=== PATIENT | female | born 1945 | race Caucasian/White ===

== ENCOUNTER → 2023-06-11 14:00 | Outpatient (REF) | payer MEDICARE, BC, SELFPAY | LOC: HWEVLT 14:00 | PROVIDERS: ATTENDING PHYSICIAN Radiology Diagnostic Radiology | DX: I83.892 Varicose veins of left lower extremity with other complications (principal) | CPT/HCPCS: 93971 ==

== ENCOUNTER 2023-08-30 09:08 | Emergency (ER) | payer MEDICARE, BC, SELFPAY ==
[2023-08-30 09:16] VITALS: BP 120/70
[2023-08-30 09:30] LABS: Glucose - Point of Care 147 mg/dl (70-99)
[2023-08-30 09:51] LABS: % Basophils 0.2 % (0-2); % Eosinophils 0.2 % (0-6); % Immature Granulocytes 0.4 % (0-0.5); % Lymphocytes 6.3 % (20.5-51.1); % Monocytes 4.4 % (1.7-9.3); % Neutrophils 88.5 % (42.2-75.2); Absolute Immature Granulocytes 0.1 10^3/uL (0-0.05); Absolute Lymphocytes 0.9 10^3/uL (1.2-3.4); Absolute Monocytes 0.7 10^3/uL (0.1-0.6); Hematocrit 38.7 % (37.0-47.0); Hemoglobin 13.4 g/dL (12.0-16.0); Mean Corp Hgb Conc. 34.6 g/dL (33.0-37.0); Mean Corpuscular Hgb 29.3 pg (27.0-31.0); Mean Corpuscular Volume 84.5 fL (81.0-99.0); Mean Platelet Volume 9.2 fL (7.4-10.4); Nucleated Red Blood Cells % 0 %; Platelet Count 226 10^3/uL (130-400); Red Blood Cell Count 4.58 10^6/uL (4.20-5.40); Red Cell Dist. Width 13.5 % (11.5-14.5); White Blood Cell Count 14.7 10^3/uL (4.8-10.8)
[2023-08-30 10:14] LABS: Blood Urea Nitrogen 15 mg/dl (7-17); Calcium 9.4 mg/dl (8.4-10.2); Carbon Dioxide 23 mmol/L (22-30); Chloride 101 mmol/L (98-107); Glucose 130 mg/dl (70-99); Sodium 133 mmol/L (135-145); eGFR > 60.00
[2023-08-30 10:16] LABS: Troponin I < 0.012 ng/ml
[2023-08-30 11:21] VITALS: BMI 31.9
[2023-08-30 12:00] VITALS: BP 123/76
--- NOTE | 2023-08-30 12:36 | ED.GENMED ---
History of Present Illness
General
Chief Complaint: Change in Mental Status
Source: patient
Exam Limitations: none
Time Seen by Provider: 08/30/23 10:57
Nursing documentation reviewed up to this point in time: agreed with
Travel History
Have you had any contact with someone who has COVID-19?: No
Do you have any symptoms of coronavirus? Fever > 100 degrees, chills, cough, shortness of breath, sore throat, loss of taste or smell, muscle aches, or headache?: No
History of Present Illness
History of Present Illness:
78-year-old female with past medical history of DVT currently on Eliquis, hypertension presenting to the emergency department today with an episode where she got very lightheaded while in the shower. She also had an episode of diarrhea while
lightheaded. She did not fully blackout but felt like she was about to. She did not fall or hit her head. Symptoms are now resolved. She denies significant abdominal pain but did have multiple episodes of diarrhea last night. No vomiting no
chest pain or shortness of breath.
Past History
Past History
ED Past Medical History: Cancer (Uterine and breast) and Other (DVT, factor V Leiden, protein C deficiency)
ED Past Surgical History: Cholecystectomy and Gynecological
Social History
Tobacco: Non-smoker
Alcohol: None
Drug: None
Personal: Other
Living: with family
Employment: Other
Family History
Family History: Other
Review of Systems
Review of Systems
Allergies reviewed?: Yes
All Other Systems: ROS reviewed and negative except as documented in HPI and ROS
Phy Exam
Physical Exam
Physical Exam:
GENERAL: Alert , in no apparent distress
EYE: pupils equal and reactive
NECK: Supple, no significant adenopathy.
ENT: o/p clr, mmm.
CARDIAC: Regular rate and rhythm .
LUNGS: Clear breath sounds bilaterally, no acute respiratory distress, no wheezes/rales/rhonchi
ABDOMEN: Soft, without focal tenderness, no r/g, no cvat
NEUROLOGICAL: Alert and oriented, no focal neuro deficits
SKIN: Warm and dry, skin intact.
MUSCULOSKELETAL: No edema, well perfused.
PSYCH: Normal and appropriate interaction.
Course
Orders/Labs/Results
Orders:
Orders
08/30/23 09:22
Electrocardiogram (*1) Urgent
Reason for Study: Syncope
EKG- Treatment ONCE
08/30/23 09:46
Basic Metabolic Panel Urgent
Complete Blood Count/With Diff Urgent
Troponin I Urgent
08/30/23 11:55
CT Head W/o Iv Contrast Urgent
Comment:
Reason For Exam: loc
08/30/23 13:29
Potassium Urgent
Abnormal Lab Results
08/30/23 08/30/23
09:29 09:46
WBC 14.7 H 10^3/uL
(4.8-10.8)
Abs Immat Gran (auto) 0.1 H 10^3/uL
(0-0.05)
Absolute Neuts (auto) 13.0 H 10^3/uL
(1.4-6.5)
Absolute Lymphs (auto) 0.9 L 10^3/uL
(1.2-3.4)
Absolute Monos (auto) 0.7 H 10^3/uL
(0.1-0.6)
Neutrophils % 88.5 H %
(42.2-75.2)
Lymphocytes % 6.3 L %
(20.5-51.1)
Sodium 133 L mmol/L
(135-145)
Glucose 130 H mg/dl
(70-99)
POC Glucose 147 H mg/dl
(70-99)
08/30/23 09:46
08/30/23 13:29
Vital Signs
Initial and Last Documented VS:
Initial Vital Signs
Temp Pulse Resp BP Pulse Ox
98.5 F 73 20 120/70 96
08/30/23 09:16 08/30/23 09:16 08/30/23 09:16 08/30/23 09:16 08/30/23 09:16
Last Documented Vital Signs
Temp Pulse Resp BP Pulse Ox
98.5 F 85 18 144/110 97
08/30/23 09:16 08/30/23 12:40 08/30/23 12:40 08/30/23 13:05 08/30/23 12:30
MDM/Problems Addressed
MDM/Problems Addressed:
78-year-old female presenting to the emergency department today with concerns of an episode where she became very pale lightheaded and almost passed out while in the shower also had an episode of vomiting while in the shower that she had no control
over she otherwise feels well at this point no additional ongoing symptoms. Did have a few episodes of diarrhea last night. Vital signs normal upon arrival normal pulse ox white count is 14.7 otherwise labs unremarkable troponin negative EKG
nonischemic. CT scan without emergent findings some potential chronic findings. Advised for neurology follow-up but otherwise stable for discharge no events during ER stay for multiple hours.
*Critical Care Note
Total Time (30-74mins, 75-104mins- exclusive of procedures): Not Applicable
ED Attending Note
-
Portions of this chart may have been created with voice recognition software.� Occasional wrong word or��sound alike� substitutions may have occurred due to the inherent limitations of voice recognition software.
Discharge Plan
Departure
Patient Disposition: Home (Routine Discharge)
Date of Disposition: 08/30/23
Time of Disposition: 14:36
Patient with high blood pressure during this ER visit?: No
Condition: Good
Covid-19: Not Applicable
Discharge Problem:
Pre-syncope
Instructions: Near Fainting
Prescriptions:
No Action
donepezil 5 mg Tablet
5 mg PO DAILY
alendronate 35 mg Tablet
35 mg PO WE
potassium chloride 20 mEq tablet,ER particles/crystals
20 meq PO DAILY
losartan-hydrochlorothiazide 50-12.5 mg Tablet
1 tab PO DAILY
Centrum Silver Tablet
1 tab PO DAILY
calcium carbonate-vitamin D3 [Caltrate with Vitamin D3] 600 mg-20 mcg (800 unit) Tablet
1 tab PO DAILY
Eliquis 2.5 mg Tablet
2.5 mg PO BID
CoQ-10
1 cap PO DAILY
Lion's Moiz
1 tab PO DAILY
ginkgo biloba
1 tab PO DAILY
Referrals:
Leonard Emmanuel MD [Family Provider] -
Checo Cosby MD [Active] - Follow up in 10 days
Activity Restrictions/Additional Instructions:
You came to the emergency department today with concerns of an episode while in the shower earlier today. Here your reassuring evaluation. No emergent findings on your exam the CT scan did show chronic findings to your CT scan. Please follow
closely with neurology. Return to the emergency department for any worsening, new or concerning symptoms.
Interventions
Interventions:
*Risk Screen - Suicide Last Done: 08/30/23 12:36
*Neglect/Abuse Screening Last Done: 08/30/23 12:36
ED- Fall Risk Assessment Last Done: 08/30/23 11:21
*ED COVID-19 Vaccine History Last Done: 08/30/23 09:16
ED- Neurological Assessment Last Done: 08/30/23 11:21
ED- Cardiac Assessment Last Done: 08/30/23 11:21
ED Swallowing Screen Last Done: 08/30/23 11:21
Discharge Date and Time
Print Language: CROATIAN
[2023-08-30 13:04] VITALS: BP 137/114
[2023-08-30 13:05] VITALS: BP 144/110
[2023-08-30 14:00] VITALS: BP 148/121
[2023-08-30 14:11] LABS: Potassium 3.9 mmol/L (3.5-5.1)
== END 2023-08-30 14:59 | disposition home or self-care (01) ==
LOC: EMR 09:08
PROVIDERS: EMERGENCY PHYSICIAN Emergency Medicine; FAMILY PHYSICIAN Internal Medicine
DX: R55 Syncope and collapse (principal); R19.7 Diarrhea, unspecified; R42 Dizziness and giddiness; R11.10 Vomiting, unspecified; Z79.01 Long term (current) use of anticoagulants
CPT/HCPCS: 99285; 70450; 80048; 82962; 84132; 84484; 85025; 93005

== ENCOUNTER → 2023-11-04 11:04 | Outpatient (REF) | payer MEDICARE, BC, SELFPAY ==
--- NOTE | 2023-11-04 13:33 | EEG.RPT ---
Electroencephalogram Report
Recording
Date of EE11/04/23
Length of EEG recordin hour 1 minute
Done with Video Recording: Yes
Patient Status: Inpatient
Recording Conditions: Awake, Drowsy and Asleep
Hyperventilation Performed: No
Photic Stimulation Performed: Yes
Hand Dominance: Unknown
Report
GREATER THAN 1 HOUR EEG REPORT
METHODS:
A 21 channel digitized electroencephalogram (EEG) was performed in the laboratory using the 10/20 international system of electrode placement with ECG monitoring. � Study lasted 1 hour 1 minute.
ELECTROENCEPHALOGRAPHER IMPRESSION(S):
Quality of study
Good
Background
Medium amplitude of alpha and theta activity
Normal posterior dominant rhythm of 9-10 hz seen
With eye opening the background activity changed to a low voltage mixture of frequencies.
There were no significant asymmetries of background activity noted.
Sleep
Drowsiness present
Photic Stimulation
Failed to activate the record
ECG
Normal sinus rhythm
GREATER THAN 1 HOUR EEG INTERPRETATION:
Unremarkable EEG for age in wakefulness through drowsiness
CLINICAL CORRELATION:
A normal EEG does not rule out a diagnosis of epilepsy.� If clinical suspicion for seizure persists, a prolonged recording may be warranted.
Clinical correlation is advised.
== END ==
LOC: RCS 11:04
PROVIDERS: ATTENDING PHYSICIAN Psychiatry & Neurology Neurology; FAMILY PHYSICIAN Internal Medicine
DX: I62.9 Nontraumatic intracranial hemorrhage, unspecified (principal)
CPT/HCPCS: 95813

== ENCOUNTER 2024-02-01 13:15 | Emergency (ER) | payer MEDICARE, BC, SELFPAY ==
[2024-02-01 13:18] VITALS: BP 178/93
[2024-02-01 14:34] VITALS: BP 150/84
--- NOTE | 2024-02-01 14:43 | ED.GENMED ---
History of Present Illness
General
Chief Complaint: DVT/Possible Blood Clot
Source: family
Time Seen by Provider: 02/01/24 14:18
History of Present Illness
History of Present Illness:
78-year-old female with past medical history of dementia and previous DVT presenting to the ER for evaluation with family after patient had reported pain to her right lower extremity pointing to behind her knee which started earlier today. Family
concern for DVT given history although they do note patient is on Eliquis and reports good compliance with this. Patient unable to give much history due to her dementia. Presently still noting posterior right knee pain. Family denies any trauma.
No fevers or infectious symptoms. Denies any cough or chest pain. No other concerns presently.
Past History
Past History
ED Past Medical History: Cancer (Uterine and breast) and Other (DVT, factor V Leiden, protein C deficiency)
ED Past Surgical History: Cholecystectomy and Gynecological
Social History
Tobacco: Non-smoker
Alcohol: None
Drug: None
Personal: Other
Living: with family
Employment: Other
Family History
Family History: Other
Review of Systems
Review of Systems
All Other Systems: ROS reviewed and negative except as documented in HPI and ROS
Phy Exam
Physical Exam
Physical Exam:
GENERAL: Alert , in no apparent distress
EYE: conjunctiva clear
NECK: Supple
ENT: o/p clr, mmm.
CARDIAC: Regular rate and rhythm
LUNGS: Clear breath sounds bilaterally, no acute respiratory distress, no wheezes/rales/rhonchi
NEUROLOGICAL: Alert but pleasantly confused
SKIN: Warm and dry, skin intact.
MUSCULOSKELETAL: No obvious deformity to the right lower extremity but it is slightly more edematous on the right compared to the left. Patient appears to be tender over joint areas but does allow for range of motion. No overlying erythema.
Easily palpable pedal and tibial pulses. Cap refill less than 2 seconds.
PSYCH: Normal and appropriate interaction.
Scores
Heart Failure Risk
Heart Failure Risk Score: Not Applicable
Heart Score for Chest Pain Patients
STEMI patient?: Not applicable
Withdrawal Assessment of Alcohol
Withdrawal Assessment Completed?: Not applicable
Course
Orders/Labs/Results
Orders:
Orders
02/01/24 13:35
US Periph Venous LOWER Ext RT Urgent
Comment:
Reason For Exam: pain, hx DVT
Vital Signs
Initial and Last Documented VS:
Initial Vital Signs
Temp Pulse Resp BP Pulse Ox
99.5 F 82 18 178/93 96
02/01/24 13:18 02/01/24 13:18 02/01/24 13:18 02/01/24 13:18 02/01/24 13:18
Last Documented Vital Signs
Temp Pulse Resp BP Pulse Ox
98.3 F 74 17 150/84 95
02/01/24 14:58 02/01/24 14:34 02/01/24 14:34 02/01/24 14:34 02/01/24 14:34
MDM/Problems Addressed
Differential Diagnosis Includes:
DVT, peripheral vascular disease, no concern for an arterial occlusion given intact and equal pulses, Webster's cyst, no trauma to indicate fracture
MDM/Problems Addressed:
78-year-old female presenting to the emergency department for evaluation with family after patient reported pain to the posterior right knee earlier today. Patient has a history of DVT and family was concerned for possible recurrence. Patient is
anticoagulated on Eliquis making this diagnosis a little less likely but will obtain an ultrasound to further evaluate. No signs of infection and there is no sign of trauma on exam.
Chronic conditions affecting care: Other (DVT)
*Radiology
Radiology exam reviewed: radiology read reviewed
*Pulse Oximetry
Patient hypoxic: no
*Critical Care Note
Total Time (30-74mins, 75-104mins- exclusive of procedures): Not Applicable
Patient Management
Escalation/DeEscalation of care consider admission/obs:
Ultrasound negative for DVT. Discussed possibility of obtaining x-ray of the knee however family did not feel this was necessary. Advised Tylenol as needed for pain. Encourage close follow-up with primary care provider. Stable for discharge home
and aware of return precautions.
ED Attending Note
-
Portions of this chart may have been created with voice recognition software.� Occasional wrong word or��sound alike� substitutions may have occurred due to the inherent limitations of voice recognition software.
Discharge Plan
Departure
Patient Disposition: Home (Routine Discharge)
Date of Disposition: 02/01/24
Time of Disposition: 14:44
Patient with high blood pressure during this ER visit?: Yes
Discharge Problem:
Lower extremity pain, right
Instructions: Peripheral Vascular Disease
Prescriptions:
No Action
donepezil 5 mg Tablet
5 mg PO DAILY
alendronate 35 mg Tablet
35 mg PO WE
potassium chloride 20 mEq tablet,ER particles/crystals
20 meq PO DAILY
losartan-hydrochlorothiazide 50-12.5 mg Tablet
1 tab PO DAILY
Centrum Silver Tablet
1 tab PO DAILY
calcium carbonate-vitamin D3 [Caltrate with Vitamin D3] 600 mg-20 mcg (800 unit) Tablet
1 tab PO DAILY
Eliquis 2.5 mg Tablet
2.5 mg PO BID
CoQ-10
1 cap PO DAILY
Lion's Moiz
1 tab PO DAILY
ginkgo biloba
1 tab PO DAILY
Referrals:
Leonard Emmanuel MD [Family Provider] -
Interventions
Interventions:
*Risk Screen - Suicide Last Done: 02/01/24 13:18
*General Assessment Last Done: 02/01/24 13:18
*Neglect/Abuse Screening Last Done: 02/01/24 13:18
*ED COVID-19 Vaccine History Last Done: 02/01/24 13:18
*Nursing Disposition Last Done: 02/01/24 15:07
ED- Cardiac Assessment Last Done: 02/01/24 15:05
ED- Pulmonary Assessment Last Done: 02/01/24 15:05
ED-Skin Assessment Last Done: 02/01/24 15:05
Discharge Date and Time
Discharge Date/Time: 02/01/24 15:07
Print Language: [place]
== END 2024-02-01 15:07 | disposition home or self-care (01) ==
LOC: EMR 13:15
PROVIDERS: EMERGENCY PHYSICIAN Emergency Medicine; FAMILY PHYSICIAN Internal Medicine
DX: M79.661 Pain in right lower leg (principal); F03.90 Unspecified dementia, unspecified severity, without behavioral disturbance, psychotic disturbance, mood disturbance, and anxiety; D68.51 Activated protein C resistance; Z86.718 Personal history of other venous thrombosis and embolism; Z79.01 Long term (current) use of anticoagulants; Z90.49 Acquired absence of other specified parts of digestive tract
CPT/HCPCS: 99284; 93971

== ENCOUNTER 2024-11-12 10:18 | Emergency (ER) | payer MEDICARE, BC, SELFPAY ==
[2024-11-12 10:23] VITALS: BP 149/89
--- NOTE | 2024-11-12 12:16 | ED.GENMED ---
History of Present Illness
General
Chief Complaint: Headache
Source: patient and family (Daughters who are at the bedside)
Exam Limitations: dementia
Time Seen by Provider: 11/12/24 10:54
History of Present Illness
History of Present Illness:
The patient is a pleasant 79-year-old female with a past medical history of dementia and factor V Leiden, on Eliquis, who was brought in by her daughters due to her complaining of neck pain and headache. Her daughters report that about 2 days ago,
she started to complain of pain at the base of her head. Additionally, she complained of pain on the right side of her neck. Her daughter reports that yesterday she complained of numbness of her left cheek. However, due to her dementia, the
family reports she is difficult to get her to explain her symptoms. They report it seems as though she is having more difficulty walking. Patient denies weakness and numbness to me at this time. She denies vision changes. Patient speaks [place]
but family is translating for her. Family reports she has a history of blood on the brain so they are concerned that there is something going on.
Past History
Past History
ED Past Medical History: Cancer (Uterine and breast), Other (DVT, factor V Leiden, protein C deficiency) and Other (Dementia)
ED Past Surgical History: Cholecystectomy and Gynecological
Social History
Tobacco: Non-smoker
Alcohol: None
Drug: None
Personal: Other
Living: with family
Employment: Other
Family History
Family History: Other
Review of Systems
Review of Systems
Allergies reviewed?: Yes
Unable to obtain full review of systems at this time due to: language barrier
Other source history: family
All Other Systems: ROS reviewed and negative except as documented in HPI and ROS
Constitutional: Reports fatigue
EENT: Reports other (Neck pain. Family reports it has been right-sided, however, patient complains of bilateral neck pain to me)
Respiratory: Reports no symptoms
Cardiac: Reports no symptoms
ABD/GI: Reports no symptoms
: Reports no symptoms
Musculoskeletal: Reports no symptoms
Skin: Reports no symptoms
Neurological: Reports headache
Endocrine: Reports no symptoms
Hematologic/Lymphatic: Reports no symptoms
Psychiatric: Reports no symptoms
Phy Exam
Physical Exam
Physical Exam:
Physical Exam
General: no apparent distress, not acutely ill
Neck: supple. no meningeal signs. normal psoterior pharynx. No swelling or erythema of soft tissue neck. Nontender C-spine
Heart: s1/s2 regular rate and rhythm, no murmur. equal radial pulses.
Lungs: no acute respiratory distress. clear bilaterally
Abdomen: normal bowel sounds. not tender. no CVAT
Neuro: alert and oriented to self only. no focal neurological deficits. Able to answer simple questions. Able to follow simple commands. 5 out of 5 strength in all extremities. PERRL
Skin: no rash
Psychiatric: well kept. interactive and cooperative
Extremities: no edema. no calf tenderness. negative homans. good distal pulses
Course
Orders/Labs/Results
Orders:
Orders
11/12/24 11:32
Electrocardiogram (*1) Urgent
Reason for Study: Other
Other Reason for Exam: stroke
CT Head & Neck Angio W/wo IV Urgent
Comment:
Reason For Exam: headache, neck pain, left face numbness
EKG- Treatment ONCE
11/12/24 12:31
Complete Blood Count/With Diff Urgent
Comprehensive Metabolic Panel Urgent
Troponin I Urgent
11/12/24 12:37
Diphenhydramine [Benadryl] 50 mg IV NOW STA
Hydrocortisone Sod Succinate [Solu-Cortef] 200 mg IV NOW STA
Abnormal Lab Results
11/12/24
12:31
Alkaline Phosphatase 35 L U/L
(38126)
11/12/24 12:31
11/12/24 12:31
Vital Signs
Initial and Last Documented VS:
Initial Vital Signs
Temp Pulse Resp BP Pulse Ox
98.5 F 79 18 149/89 98
11/12/24 10:23 11/12/24 10:23 11/12/24 10:23 11/12/24 10:23 11/12/24 10:23
Last Documented Vital Signs
Temp Pulse Resp BP Pulse Ox
98.5 F 65 20 167/85 98
11/12/24 10:23 11/12/24 13:04 11/12/24 13:04 11/12/24 13:04 11/12/24 12:58
MDM/Problems Addressed
Differential Diagnosis Includes:
Subarachnoid hemorrhage, carotid artery dissection, venous thrombosis
MDM/Problems Addressed:
Patient arrives with complaint of acute headache and neck pain
Chronic conditions affecting care:
Factor V Leyden
Acute Exacerbation and/or Progression of Chronic Illness:
Patient can have venous thrombosis due to tendency to form blood clots
Acute Exacerbation and/or Progression of Chronic Illness: Other (Tendency to form blood clots)
*Radiology
Radiology exam reviewed: radiology read reviewed
*Pulse Oximetry
SaO2: 98
Oxygen Mode of Delivery: Room air
Patient hypoxic: no
Comment: 98% on room air
*EKG
Interpreted by ED Provider?: Yes
Interpretation: abnormal
Comparison EKG: no changes
Rate: normal
Rhythm: sinus
Skillman: left axis deviation
Interval: normal interval
QRS Pattern: left vent hypertrophy
Ischemia: non-specific ST changes
*Welding Machine Setter Interpretation
Rate: normal
Interpretation: normal
Rhythm: sinus
*Critical Care Note
Total Time (30-74mins, 75-104mins- exclusive of procedures): Not Applicable
Data Reviewed
Review of Other/Old Records Reveals: Radiology Studies (CT head reviewed from 2024. Shows no acute disease)
Source: patient and family
Patient Management
Social determinants of health affecting care: Living situation and Strong social support
ED Attending Note
-
Portions of this chart may have been created with voice recognition software.� Occasional wrong word or��sound alike� substitutions may have occurred due to the inherent limitations of voice recognition software.
Discharge Plan
Departure
Prescriptions:
No Action
donepezil 5 mg Tablet
5 mg PO DAILY
alendronate 35 mg Tablet
35 mg PO WE
potassium chloride 20 mEq tablet,ER particles/crystals
20 meq PO DAILY
losartan-hydrochlorothiazide 50-12.5 mg Tablet
1 tab PO DAILY
Centrum Silver Tablet
1 tab PO DAILY
calcium carbonate-vitamin D3 [Caltrate with Vitamin D3] 600 mg-20 mcg (800 unit) Tablet
1 tab PO DAILY
Eliquis 2.5 mg Tablet
2.5 mg PO BID
CoQ-10
1 cap PO DAILY
Lion's Moiz
1 tab PO DAILY
ginkgo biloba
1 tab PO DAILY
Referrals:
Leonard Emmanuel MD [Family Provider, Internal Medicine]
Interventions
Interventions:
*General Assessment Last Done: 11/12/24 11:23
*Neglect/Abuse Screening Last Done: 11/12/24 11:23
*ED- Fall Risk Assessment Last Done: 11/12/24 11:23
*ED COVID-19 Vaccine History Last Done: 11/12/24 11:23
ED- Neurological Assessment Last Done: 11/12/24 11:27
Discharge Date and Time
Print Language: [place]
[2024-11-12] MEDS: BENADRYL 50 MG IV (12:43)
[2024-11-12] MEDS: SOLU-CORTEF 200 MG IV (12:44)
[2024-11-12 12:47] LABS: Hematocrit 37.6 % (37.0-47.0); Hemoglobin 12.6 g/dL (12.0-16.0); Mean Corp Hgb Conc. 33.5 g/dL (33.0-37.0); Mean Corpuscular Volume 86.4 fL (81.0-99.0); Nucleated Red Blood Cells % 0 %; Platelet Count 207 10^3/uL (130-400); Red Cell Dist. Width 13.4 % (11.5-14.5)
[2024-11-12 12:52] LABS: ALT (SGPT) 25 U/L (0-35); AST (SGOT) 24 U/L (14-36); Albumin 4.3 g/dl (3.5-5.0); Alkaline Phosphatase 35 U/L (38-126); Blood Urea Nitrogen 11 mg/dl (7-17); Calcium 9.8 mg/dl (8.4-10.2); Carbon Dioxide 28 mmol/L (22-30); Chloride 105 mmol/L (98-107); Glucose 93 mg/dl (70-99); Potassium 3.8 mmol/L (3.5-5.1); Sodium 138 mmol/L (135-145); Total Protein 7.2 g/dl (6.3-8.2); eGFR > 60.00
[2024-11-12 12:58] VITALS: BP 184/111
[2024-11-12 13:03] LABS: Troponin I < 0.012 ng/ml
[2024-11-12 13:04] VITALS: BP 167/85
[2024-11-12] MEDS: SENSORCAINE 0.5% SINGLE DOSE 30 ML INJ (15:56)
[2024-11-12] MEDS: KENALOG-40 40 MG IM (15:56)
[2024-11-12 16:00] VITALS: BP 145/101
[2024-11-12 16:26] LABS: Urine Character Clear (Clear)
[2024-11-12 17:08] LABS: Urine Red Blood Cell 0-2 /HPF (0-2); Urine White Cell 0-2 /HPF (0-5)
== END 2024-11-12 16:20 | disposition home or self-care (01) ==
LOC: EMR 10:18
PROVIDERS: Physician Assistant; CONSULT PHYSICIAN Psychiatry & Neurology Clinical Neurophysiology; EMERGENCY PHYSICIAN Emergency Medicine; FAMILY PHYSICIAN Internal Medicine
DX: R51.9 Headache, unspecified (principal); R03.0 Elevated blood-pressure reading, without diagnosis of hypertension; F03.90 Unspecified dementia, unspecified severity, without behavioral disturbance, psychotic disturbance, mood disturbance, and anxiety; D68.51 Activated protein C resistance; Z79.01 Long term (current) use of anticoagulants; Z86.718 Personal history of other venous thrombosis and embolism; Z90.49 Acquired absence of other specified parts of digestive tract
CPT/HCPCS: 99284; 96374; 96375; 96372; 70496; 70498; 80053; 81003; 81015; 84484; 85025; 93005; Q9967

== ENCOUNTER 2025-05-11 06:38 | Emergency (ER) | payer MEDICARE, BC, SELFPAY ==
[2025-05-11 07:00] VITALS: BP 173/97
--- NOTE | 2025-05-11 08:44 | ED.GENMED ---
History of Present Illness
General
Chief Complaint: Urinary Symptoms
Source: patient
Exam Limitations: none
Time Seen by Provider: 05/11/25 08:23
Nursing documentation reviewed up to this point in time: agreed with
History of Present Illness
History of Present Illness:
80-year-old female with history as noted significant for factor V Leiden and DVTs on Eliquis, dementia who presents to the emergency department with her daughter for evaluation of apparent right groin pain. Daughter reports that yesterday patient
was walking with a bit of a limp and seem to be grabbing at her right groin/thigh. Today had trouble even getting up and walking due to apparent pain in the right groin and keeps grabbing at her groin. She is typically quite mobile according to
daughter. Patient has not complained of any urinary issues, abdominal pain. She has not had a fever but has had a mild cough and has been sneezing according to daughter for the past few days. She was swabbed for COVID and flu recently and they
were all negative according to daughter. Daughter says the patient has not had any falls and is constantly with family member and so she does not believe there may have been an unwitnessed fall. She says that her mother has never complained of
similar issues in the past although she will occasionally have DVTs that cause lower leg pain; daughter does note that right leg seems a bit more swollen than usual recently. Unfortunately the patient cannot meaningfully participate in history due
to her significant dementia.
Past History
Past History
ED Past Medical History: Cancer (Uterine and breast), Other (DVT, factor V Leiden, protein C deficiency) and Other (Dementia)
ED Past Surgical History: Cholecystectomy and Gynecological
Social History
Tobacco: Non-smoker
Alcohol: None
Drug: None
Personal: Other
Living: with family
Employment: Other
Family History
Family History: Other
Review of Systems
Review of Systems
Unable to obtain full review of systems at this time due to: dementia
All Other Systems: Not applicable
Phy Exam
Physical Exam
Physical Exam:
General: Awake, alert, lying comfortably in bed, nontoxic.
Head: Normocephalic, atraumatic
Eyes: Conjunctiva normal
Throat: Airway intact, handling secretions
Neck: Trachea midline, supple without meningismus
Lungs: Breathing comfortably without evidence of respiratory distress
Heart: Regular rate
Abd: Soft, non distended, nontender to deep palpation
: No erythema or rash noted in the inguinal creases or in the vaginal region
Neuro: Grossly intact
Skin: Warm and dry
Extremities: Patient has mild right lower extremity edema compared to the left, no apparent focal calf tenderness or palpable cords on the right and she has good pulses throughout the right lower extremity; on exam of the right groin she has no
focal tenderness in the inguinal crease she does seem to have some tenderness over the greater trochanter on the right; she moans with range of motion of the legs including the hips but does so bilaterally and generally moans with examination so it
is difficult to tell if she is uncomfortable with range of motion
Scores
Heart Failure Risk
Heart Failure Risk Score: Not Applicable
Heart Score for Chest Pain Patients
STEMI patient?: Not applicable
Withdrawal Assessment of Alcohol
Withdrawal Assessment Completed?: Not applicable
Course
Orders/Labs/Results
Orders:
Orders
05/11/25 07:11
COVID-19 Antigen Urgent
Source: Nasal Swab
INF RAPID [Influenza A+B Rapid Molecular] Urgent
DEB Source: Nasal Swab
Specimen Description:
Date Specimen was Collected: 05/11/25
Time Specimen was Collected: 07:05
05/11/25 08:25
US Periph Venous LOWER Ext RT Urgent
Comment:
Reason For Exam: RLE swelling
05/11/25 08:28
Urinalysis Reflex To Culture Urgent
Date Specimen was Collected: 05/11/25
Time Specimen was Collected: 07:05
Urine Microscopic Reflex Cult Urgent
Urine Culture Urgent
DEB Source: U
Specimen Description:
Date Specimen was Collected: 05/11/25
Time Specimen was Collected: 07:05
05/11/25 08:43
CR Hip - RT w/wo Pel 2-3 Vw* Urgent
Comment:
Reason For Exam: right groin pain
Include a pelvis x-ray?: Yes
05/11/25 11:16
Complete Blood Count/With Diff Urgent
Comprehensive Metabolic Panel Urgent
05/11/25 11:56
Pt Eval And Treat Urgent
Activity Level: With Assistance
Abnormal Lab Results
05/11/25 05/11/25
08:28 11:16
Hct 36.0 L %
(37.0-47.0)
Ur Occult Blood Reflex 1+ A
(Negative)
Leukocyte Esterase Rfl 2+ A
(Negative)
Urine WBC (Reflex) 21-25 A /HPF
(0-5)
Urine Bacteria (Reflex) Moderate A
(Negative)
Urine Albumin (Reflex) 2+ A
(Neg - Trace)
05/11/25 11:16
05/11/25 11:16
Vital Signs
Initial and Last Documented VS:
Initial Vital Signs
Temp Pulse Resp BP Pulse Ox
37.4 C 80 20 173/97 95
05/11/25 07:00 05/11/25 07:00 05/11/25 07:00 05/11/25 07:00 05/11/25 07:00
Last Documented Vital Signs
Temp Pulse Resp BP Pulse Ox
37.4 C 65 16 138/76 95
05/11/25 07:00 05/11/25 11:20 05/11/25 11:20 05/11/25 11:20 05/11/25 11:20
MDM/Problems Addressed
Differential Diagnosis Includes:
Osteoarthritis, muscle strain, pelvic/hip fracture, synovitis, DVT, UTI less likely to affect gait
MDM/Problems Addressed:
80-year-old female presents for evaluation of apparent pain in the right groin/hip�daughter says that she was limping yesterday and has been grabbing towards her right groin/thigh, today had difficulty walking due to apparent pain. Daughter has
noted some recent asymmetric swelling of the right leg and patient does have a history of DVT although reportedly compliant with Eliquis. No reported falls or traumas recently. Vitals and exam are as above. Will plan to check basic labs,
urinalysis. Can check ultrasound to evaluate for DVT. Check x-ray of the right hip. Will reassess after the above.
Labs reviewed: CBC and CMP no clinically significant abnormalities. Her urinalysis does have bacteria and pyuria but squamous cells suggest some degree of contamination. Viral swabs were negative.. X-ray of the hip negative for any acute issue.
Ultrasound negative for DVT. Patient clinically stable on reassessment. Unclear etiology to her groin pain�UTI I suppose is a possibility but she has not really complained of urinary symptoms and has not had suprapubic tenderness does not have a
fever or leukocytosis�can treat pending culture but would be unusual for a UTI to cause gait issue. This could be a synovitis in the setting of viral illness as she has had URI type symptoms for the past few days. Nothing at this point to suggest
a septic arthritis.
Patient was able to ambulate with PT had some stiffness with the first few steps but afterwards was walking with steady gait and no issues. Had a long discussion with daughters�explained that I will cover with antibiotics for possible UTI although
hard to attribute mild limp earlier to urine infection. Explained that it could be like viral related synovitis. I think at this point she is stable to be discharged advised to return with any concerning symptoms. They feel very comfortable to
this plan. All questions answered.
Chronic conditions affecting care:
Dementia, history of DVT
*Radiology
Radiology exam reviewed: radiology read reviewed
*Pulse Oximetry
SaO2: 95
Oxygen Mode of Delivery: Room air
Patient hypoxic: no (95%)
*Critical Care Note
Total Time (30-74mins, 75-104mins- exclusive of procedures): Not Applicable
Data Reviewed
Review of Other/Old Records Reveals: Labs and Records
Source: patient, records and family
ED Attending Note
-
Portions of this chart may have been created with voice recognition software.� Occasional wrong word or��sound alike� substitutions may have occurred due to the inherent limitations of voice recognition software.
Discharge Plan
Departure
Patient Disposition: Home (Routine Discharge)
Date of Disposition: 05/11/25
Time of Disposition: 12:53
Patient with high blood pressure during this ER visit?: Yes
Discharge Problem:
Hip pain, right, Acute UTI
Instructions: Urinary tract infections in adults
Prescriptions:
New
cefdinir 300 mg capsule
300 mg PO BID Qty: 14 0RF
No Action
donepezil 5 mg Tablet
5 mg PO DAILY
alendronate 35 mg Tablet
35 mg PO WE
potassium chloride 20 mEq tablet,ER particles/crystals
20 meq PO DAILY
losartan-hydrochlorothiazide 50-12.5 mg Tablet
1 tab PO DAILY
Centrum Silver Tablet
1 tab PO DAILY
calcium carbonate-vitamin D3 [Caltrate with Vitamin D3] 600 mg-20 mcg (800 unit) Tablet
1 tab PO DAILY
Eliquis 2.5 mg Tablet
2.5 mg PO BID
CoQ-10
1 cap PO DAILY
Lion's Moiz
1 tab PO DAILY
ginkgo biloba
1 tab PO DAILY
Referrals:
Leonard Emmanuel MD [Family Provider, Internal Medicine] - Follow up in 5-7 days
Activity Restrictions/Additional Instructions:
Thank you for visiting the Emergency Department at [facility].
1. Please schedule a follow up appointment as directed. Call first thing tomorrow morning to make an appointment.
2. If indicated, please take your medications as instructed and indicated on discharge paperwork.
3. If any of your symptoms do not improve, or persist, or become more severe within 6-12 hours, please return to the emergency department for further care.
4. Please return to the emergency department if you develop a headache, neck pain/stiffness, fever greater than 100.4F, chest pain, shortness of breath, persistent nausea, vomiting, slurred speech, difficulty walking, numbness/tingling, weakness,
signs of infection or any other symptoms that are worrisome to you.
Please call [phone] if you have any questions.
Interventions
Interventions:
*General Assessment Last Done: 05/11/25 09:00
*Neglect/Abuse Screening Last Done: 05/11/25 09:00
*ED COVID-19 Vaccine History Last Done: 05/11/25 09:00
*ED Influenza Vaccine History Last Done: 05/11/25 09:00
[facility] Risk Assessment Tool Last Done: 05/11/25 08:59
*Risk Screen - Suicide (C-SSRS) Last Done: 05/11/25 09:00
ED-Female Genitourinary Assessment Last Done: 05/11/25 09:08
Discharge Date and Time
Print Language: ROMANIAN
[2025-05-11 08:45] LABS: COVID-19 Antigen Negative (Negative)
[2025-05-11 08:56] LABS: Urine Character Clear (Clear)
[2025-05-11 08:59] VITALS: BMI 32.8
[2025-05-11 09:00] VITALS: BP 140/64
[2025-05-11 09:50] LABS: Urine Squamous Cell 26-30 /LPF (Few)
[2025-05-11 09:51] LABS: Urine Red Blood Cell 0-2 /HPF (0-2); Urine White Cell 21-25 /HPF (0-5)
[2025-05-11 10:10] VITALS: BP 160/90
[2025-05-11 11:20] VITALS: BP 138/76
[2025-05-11 11:32] LABS: Hematocrit 36.0 % (37.0-47.0); Hemoglobin 12.2 g/dL (12.0-16.0); Mean Corp Hgb Conc. 33.9 g/dL (33.0-37.0); Mean Corpuscular Volume 85.3 fL (81.0-99.0); Nucleated Red Blood Cells % 0 %; Platelet Count 232 10^3/uL (130-400); Red Cell Dist. Width 13.2 % (11.5-14.5)
[2025-05-11 11:48] LABS: ALT (SGPT) 21 U/L (0-35); AST (SGOT) 24 U/L (14-36); Albumin 4.2 g/dl (3.5-5.0); Alkaline Phosphatase 42 U/L (38-126); Blood Urea Nitrogen 17 mg/dl (7-17); Calcium 9.3 mg/dl (8.4-10.2); Carbon Dioxide 28 mmol/L (22-30); Chloride 100 mmol/L (98-107); Estimated Creatinine Clearance 61 ml/min; Glucose 98 mg/dl (70-99); Potassium 3.6 mmol/L (3.5-5.1); Sodium 137 mmol/L (135-145); Total Protein 7.0 g/dl (6.3-8.2); eGFR > 60.00
[2025-05-11 13:15] VITALS: BP 126/84
== END 2025-05-11 13:16 | disposition home or self-care (01) ==
LOC: EMR 06:38
PROVIDERS: Physician Assistant; EMERGENCY PHYSICIAN Emergency Medicine; FAMILY PHYSICIAN Internal Medicine
DX: M25.551 Pain in right hip (principal); N39.0 Urinary tract infection, site not specified; D68.51 Activated protein C resistance; D68.59 Other primary thrombophilia; F03.90 Unspecified dementia, unspecified severity, without behavioral disturbance, psychotic disturbance, mood disturbance, and anxiety; Z79.01 Long term (current) use of anticoagulants; Z86.718 Personal history of other venous thrombosis and embolism
CPT/HCPCS: 99284; 73502; 80053; 81003; 81015; 85025; 87086; 87502; 87811; 93971